=== PATIENT | male | born 1965 | race Caucasian/White ===

== ENCOUNTER 2019-11-18 08:34 | Inpatient (IN) ==
[2019-11-18] MEDS ORDERED: Heparin - STEMI 5,000 UNITS/ML 1 ml VIAL IV ONE (08:37)
[2019-11-18] MEDS ORDERED: VERAPAMIL 2.5 MG/ML 2 ML VIAL ** 5 mg/2 ml ONE (08:48)
[2019-11-18] MEDS ORDERED: Heparin 1,000 UNIT/ML CATH LAB 1,000 10 ml (10,000 UNITS) IV ONE (08:48)
[2019-11-18] MEDS ORDERED: nitroGLYCERIN DRIP 25,000 MCG/250 ML BTL ONE (08:48)
[2019-11-18] MEDS ORDERED: Metoprolol Tartrate 5 mg VIAL 5 ml VIAL (1 mg/ml) IV ONE (08:48)
[2019-11-18] MEDS ORDERED: Heparin 2 UNITS/ML 1000 mls 2,000 ML IV ONE (08:48)
[2019-11-18] MEDS ORDERED: Lidocaine 1% VIAL 10 MG/ML VIAL ONE (08:48)
[2019-11-18] MEDS ORDERED: Iohexol 350 (CONTRAST) 200 ML MDV IV ONE (08:49)
[2019-11-18 08:54] LABS: ABS Basophils 0.1 10^3/ul (0-0.2); ABS Eosinophils 0.1 10^3/ul (0-0.6); ABS Lymphocytes 2.3 10^3/ul (1.0-4.8); ABS Monocytes 0.7 10^3/ul (0-0.8); Eosinophil % 1.8 %; Hematocrit 41 % (42-52); Hemoglobin 14.5 g/dL (14.0-18.0); Lymphocyte % 31.4 %; Mean Corpuscular HGB Conc 35 g/dL (31-36); Mean Corpuscular Hemoglobin 31 pg (27-31); Mean Corpuscular Volume 89 fL (80-94); Mean Platelet Volume 8.2 fL (7.4-10.4); Nucleated Red Blood Cells % 0.1; Platelet Count 235 10^3/uL (150-450); Red Blood Count 4.68 10^6 /uL (4.18-5.48); Red Cell Distribution Width 13 % (10-15); White Blood Count 7.4 10^3/uL (3.5-10.8)
[2019-11-18 09:06] LABS: Activated Partial Thrombo Time 26.4 seconds (26.0-38.0); INR 0.96 (0.82-1.09)
[2019-11-18] MEDS ORDERED: fentaNYL 100 mcg/2 ml 50 MCG/ML VIAL ONE (09:09)
[2019-11-18] MEDS ORDERED: Midazolam 5 mg/5 ml VIAL 1 mg/ml 5 ml VIAL (5 mg) ONE (09:09)
[2019-11-18 09:12] LABS: Albumin 4.2 g/dL (3.2-5.2); Albumin/Globulin Ratio 1.3 (1-3); Calcium 8.8 mg/dL (8.6-10.3); EGFR African American 77.4 (>60); EGFR Non-African American 63.9 (>60); Globulin 3.3 g/dL (2-4); Potassium 4.1 mmol/L (3.5-5.0); Total Bilirubin 0.5 mg/dL (0.2-1.0); Total Protein 7.5 g/dL (6.4-8.9)
[2019-11-18 09:18] LABS: Myoglobin 31.8 ng/mL (17.4-105.7)
[2019-11-18 09:47] LABS: CKMB ng/mL 1.1 ng/mL (0.6-6.3)
[2019-11-18] MEDS ORDERED: NS 0.9% 1000 ml BAG 500 ML IV ONE (09:52)
[2019-11-18] MEDS ORDERED: Iohexol 350 (CONTRAST) 500 ML MDV IV ONE (10:32)
[2019-11-18] MEDS ORDERED: Perflutren Lipid Microsphere 3 ML VIAL ONE (11:53)
[2019-11-18 12:41] LABS: Troponin I 12.24 ng/mL (<0.03)
[2019-11-18 17:24] LABS: Troponin I 26.01 ng/mL (<0.03)
[2019-11-18] MEDS: Morphine 2 MG/ML SYRINGE IV PRN ×2 (17:45→22:55)
[2019-11-18] MEDS: nitroGLYCERIN DRIP 25,000 MCG/250 ML BTL IV SCH (19:24)
[2019-11-18] MEDS: Heparin 5000 UNITS/ML VIAL(*) 1 ml vial SUBCUT SCH (20:07)
[2019-11-18 22:44] LABS: Troponin I 18.46 ng/mL (<0.03)
[2019-11-19] MEDS: nitroGLYCERIN DRIP 25,000 MCG/250 ML BTL IV SCH ×2 (00:52→05:40)
[2019-11-19 05:46] LABS: ABS Basophils 0.1 10^3/ul (0-0.2); ABS Eosinophils 0.1 10^3/ul (0-0.6); ABS Lymphocytes 2.2 10^3/ul (1.0-4.8); ABS Monocytes 0.8 10^3/ul (0-0.8); Eosinophil % 0.9 %; Hematocrit 35 % (42-52); Hemoglobin 12.4 g/dL (14.0-18.0); Lymphocyte % 21.7 %; Mean Corpuscular HGB Conc 35 g/dL (31-36); Mean Corpuscular Hemoglobin 31 pg (27-31); Mean Corpuscular Volume 88 fL (80-94); Mean Platelet Volume 8.7 fL (7.4-10.4); Nucleated Red Blood Cells % 0.1; Platelet Count 233 10^3/uL (150-450); Red Blood Count 4.01 10^6 /uL (4.18-5.48); Red Cell Distribution Width 13 % (10-15)
[2019-11-19 06:08] LABS: Troponin I 10.29 ng/mL (<0.03)
[2019-11-19 06:27] LABS: Albumin 3.5 g/dL (3.2-5.2); CO2 Carbon Dioxide 18 mmol/L (22-32); Chloride 101 mmol/L (101-111); Sodium 132 mmol/L (135-145)
[2019-11-19 06:34] LABS: ALT 53 U/L (7-52); Albumin/Globulin Ratio 1.2 (1-3); Alkaline Phosphatase 61 U/L (34-104); Blood Urea Nitrogen 13 mg/dL (6-24); Cholesterol 194 mg/dL; EGFR African American 86.5 (>60); EGFR Non-African American 71.5 (>60); Globulin 2.9 g/dL (2-4); Glucose 138 mg/dL (70-100); HDL Cholesterol 33.1 mg/dL; Total Protein 6.4 g/dL (6.4-8.9); Triglycerides 921 mg/dL
[2019-11-19 06:42] LABS: Anion Gap 13 mmol/L (2-11); Potassium 3.8 mmol/L (3.5-5.0)
[2019-11-19 06:47] LABS: LDL Cholesterol Direct 52 mg/dL
[2019-11-19 06:49] LABS: AST 93 U/L (13-39)
[2019-11-19] MEDS: Heparin 5000 UNITS/ML VIAL(*) 1 ml vial SUBCUT SCH ×3 (07:58→19:34)
[2019-11-19] MEDS: Isosorbide Mononit ER 30mg TAB PO SCH (13:52)
[2019-11-20] MEDS: Isosorbide Mononit ER 30mg TAB PO SCH (08:11)
[2019-11-20] MEDS: Heparin 5000 UNITS/ML VIAL(*) 1 ml vial SUBCUT SCH (08:13)
[2019-11-20] MEDS ORDERED: Aspirin EC 81 mg TAB.EC (enteric coated) PO SCH (09:00)
[2019-11-20 13:36] VITALS: BP 118/69
== END 2019-11-20 15:00 | disposition home or self-care (01) | DRG 281 ==
LOC: ED 08:34 → CHICATH 08:52 → ICU 09:53 → MEDTELE 11-19 11:15
PROVIDERS: ADMIT Hospitalist; ATTEND Surgery Surgical Critical Care